=== PATIENT | male | born 1960 | race Caucasian/White ===

== ENCOUNTER 2018-08-19 10:15 | Inpatient (IN) | payer OTHER ==
[~2018-08-19] VITALS: Ht 162.6 cm; Wt 81.6 kg
[2018-08-19] MEDS ORDERED: HYZAAR 100-251 EACH (11:39)
== END 2018-08-28 10:44 | disposition home or self-care (01) | DRG 331 ==
LOC: SURH 08-24 10:15 → O/R 08-25 11:08 → SURH 08-25 19:31
PROVIDERS: Colon & Rectal Surgery
PROC: 0DTP4ZZ Resection of Rectum, Percutaneous Endoscopic Approach (ICD-10-PCS; 2018-08-25)
PROC: 07TC4ZZ Resection of Pelvis Lymphatic, Percutaneous Endoscopic Approach (ICD-10-PCS; 2018-08-25)
PROC: 0D1B4Z4 Bypass Ileum to Cutaneous, Percutaneous Endoscopic Approach (ICD-10-PCS; 2018-08-25)
PROC: 0DJD8ZZ Inspection of Lower Intestinal Tract, Via Natural or Artificial Opening Endoscopic (ICD-10-PCS; 2018-08-25)
PROC: 0DTN4ZZ Resection of Sigmoid Colon, Percutaneous Endoscopic Approach (ICD-10-PCS; principal; 2018-08-25 23:00)
DX: C20 Malignant neoplasm of rectum (principal); D50.0 Iron deficiency anemia secondary to blood loss (chronic); I11.9 Hypertensive heart disease without heart failure; E66.9 Obesity, unspecified; G47.33 Obstructive sleep apnea (adult) (pediatric)

== ENCOUNTER 2018-11-04 12:23 | Inpatient (IN) | payer OTHER ==
[~2018-11-04] VITALS: Ht 162.6 cm; Wt 73.5 kg
[~2018-11-04 12:23] MED LIST: HYZAAR 100-251 EACH
== END 2018-12-17 18:06 | disposition home or self-care (01) | DRG 330 ==
LOC: SURH 12-09 09:30 → SURG 12-15 06:59 → O/R 12-15 06:59 → SURH 12-15 07:00 → SURG 12-15 14:28
PROVIDERS: ADMIT Colon & Rectal Surgery
PROC: 4A12X4Z Monitoring of Cardiac Electrical Activity, External Approach (ICD-10-PCS; 2018-12-15)
PROC: 0DQB4ZZ Repair Ileum, Percutaneous Endoscopic Approach (ICD-10-PCS; principal; 2018-12-15 07:00)
DX: Z43.2 Encounter for attention to ileostomy (principal); C20 Malignant neoplasm of rectum; K66.0 Peritoneal adhesions (postprocedural) (postinfection); I11.9 Hypertensive heart disease without heart failure; D50.0 Iron deficiency anemia secondary to blood loss (chronic); E66.8 Other obesity; G47.33 Obstructive sleep apnea (adult) (pediatric)

== ENCOUNTER 2018-12-09 08:43 | Outpatient (CLI) | payer OTHER | END 2018-12-09 08:50 | disposition home or self-care (01) | LOC: RX STUDY 08:43 | DX: C20 Malignant neoplasm of rectum (principal) ==

== ENCOUNTER 2019-12-30 07:23 | Day surgery (SDC) | payer OTHER | END 2019-12-30 13:45 | disposition home or self-care (01) | LOC: AMB-ENDOS 07:23 → ADM 14:15 | DX: K62.89 Other specified diseases of anus and rectum (principal); K57.30 Diverticulosis of large intestine without perforation or abscess without bleeding ==

== ENCOUNTER → 2021-04-26 13:58 | Outpatient (CLI) | payer OTHER | END | disposition home or self-care (01) | LOC: LAB 13:58 | PROVIDERS: ATTEND Colon & Rectal Surgery | DX: C20 Malignant neoplasm of rectum (principal); K92.1 Melena; Z85.048 Personal history of other malignant neoplasm of rectum, rectosigmoid junction, and anus ==

== ENCOUNTER 2021-05-03 08:39 | Day surgery (SDC) | payer OTHER | END 2021-05-03 15:25 | disposition home or self-care (01) | LOC: AMB-ENDOS 08:39 | PROVIDERS: ATTEND Colon & Rectal Surgery | DX: K62.89 Other specified diseases of anus and rectum (principal); Z20.822 Contact with and (suspected) exposure to COVID-19 ==